=== PATIENT | female | born 1975 | race Two or more races ===

== ENCOUNTER 2025-01-16 13:25 | Outpatient (CLI) | payer OTHER ==
[~2025-01-16 13:25] MED LIST: PRENATAL1 TAB PO
== END 2025-01-16 13:35 | disposition home or self-care (01) ==
LOC: SONOGRAMA 13:25
PROVIDERS: ATTEND Pathology Anatomic Pathology & Clinical Pathology
DX: D34 Benign neoplasm of thyroid gland (principal); E04.1 Nontoxic single thyroid nodule; E07.89 Other specified disorders of thyroid